=== PATIENT | female | born 1975 | race Caucasian/White ===

== ENCOUNTER 2019-07-09 18:31 | Emergency (ER) | payer OTHER ==
[~2019-07-09] VITALS: Ht 60 cm; Wt 58.1 kg
--- NOTE | 2019-07-09 18:34 | NUR ---
Pt brought ambulatory to ED 5 from registration desk. Report of pt having similar episode as did 1 elem ago that lead pt to getting to for evaluation to r/o stroke. reports patient was told all the studies via reports no stroke detected and considered adverse reaction to a medication? Pt was fine at 1644 then began Left sided weakness and left mouth droop. said she seemed confused at that time. Pt brought to room, vitals began, SL started and lab drawn while CT scanner was warming up. Pt reports alittle headache on top of head with a pressure sensation down to her tops of ears. Dr Arce notified of pt's arrival. Pt is alert, knows month and age, and reports seeing finger movement of staff nurse while not noticing eyes tracking.
--- NOTE | 2019-07-09 18:50 | NUR ---
Pt leaving room via cart heading to CT. [facility] interrupted.
--- NOTE | 2019-07-09 18:55 | NUR ---
Report to Meme SINGER to resume care.
--- NOTE | 2019-07-09 18:57 | Diagnostic Imaging Report ---
PROCEDURE: CT head without contrast. TECHNIQUE: Multiple contiguous axial images were obtained through the brain without the use of intravenous contrast. Auto Exposure Controls were utilized during the CT exam to meet ALARA standards for radiation dose reduction. INDICATION: Stroke-like symptoms. COMPARISON: No comparison available. FINDINGS: By CT imaging, there are no findings of territorial loss of vega-white differentiation, and there is no evidence of abnormal hypodensity within the basal ganglia or within the wayne. There are no findings of hemorrhage. There is no mass effect or shift. There is no hydrocephalus. There is no abnormal extra-axial fluid collection, and the basilar cisterns appear patent. Mastoids appear clear. The visualized paranasal sinuses are clear. There is some slight density demonstrated within the basilar artery and both of the middle cerebral arteries but no asymmetric focal hyperdensity evident. IMPRESSION: 1. No current CT findings of loss of vega-white differentiation or abnormal hypodensity within the basal ganglia. No acute ischemic changes evident by CT. If there is continued clinical concern, MRI could be considered. Dictated by: Dictated on workstation # [id number]
[2019-07-09] MEDS ORDERED: LORazepam INJ 2 MG/ML (ATIVAN) VIAL ONE (19:14)
[2019-07-09] MEDS ORDERED: DIAZEPAM INJ 10 MG/2 ML (VALIUM) SYR IVP ONE (19:15)
--- NOTE | 2019-07-09 19:20 | ED General ---
General Chief Complaint: Neuro-Stroke Like Symptoms Stated Complaint: CONFUSED, FACIAL NUMBNESS AND DROOPING Source of Information: Patient History of Present Illness Date Seen by Provider: Jul 09, 2019 Time Seen by Provider: 18:45 Initial Comments Patient is a 43-year-old who presents with acute onset left facial droop starting 2 hours prior to ED arrival. Symptoms were preceded by inability to find her words 1 hour prior to facial droop. 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 Denies posterior neck pain. No change in vision, difficulty swallowing. Patient was driving with her spouse when he first noticed the symptoms. Patient also reports headache which has since resolved. No chest pain palpitations. Symptoms have not improved since time of onset. Patient reportedly had near identical symptoms 1 week ago and drove to [facility] and was admitted to that facility for 2 nights. The patient is beyond the window of TPA by the time she arrived in [place] and therefore was not a candidate for TPA. The patient's spouse states she had 4 scans which were reported as normal. States she was not diagnosed with a stroke and thr cause of her symptoms remains unclear, but was thought might be an adverse reaction to newly started medication. Patient states she was sent home with a prescription for Zyrtec and vitamin B6. Stroke alert on ED alert. Timing/Duration: Constant (3 hours), Other (3 hours) Associated Systoms: Denies Symptoms Allergies and Home Medications Allergies Coded Allergies: No Known Drug Allergies (Unverified , 07/09/19) Patient Home Medication List Home Medication List Reviewed: Yes Review of Systems Review of Systems Constitutional: see HPI EENTM: see HPI Respiratory: see HPI Cardiovascular: see HPI Gastrointestinal: see HPI Genitourinary: see HPI Musculoskeletal: see HPI Skin: see HPI Psychiatric/Neurological: See HPI Hematologic/Lymphatic: See HPI Immunological/Allergic: see HPI Past Woyxvdt-Gmclnr-Nexaqs Hx Past Med/Social Hx: Reviewed Nursing Past Med/Soc Hx Patient Social History Recent Foreign Travel: No Contact w/Someone Who Travel: No Physical Exam Vital Signs Vital Signs - First Documented 07/09/19 18:34 Temp 36.2 Pulse 102 Resp 18 B/P (MAP) 110/93 Pulse Ox 99 O2 Delivery Room Air Capillary Refill : Height, Weight, BMI Height: '" Weight: lbs. oz. kg; BMI Method: General Appearance: No Apparent Distress, WD/WN Eyes: Bilateral Eye Normal Inspection, Bilateral Eye PERRL, Bilateral Eye EOMI, Bilateral Eye Abnormal EOM, Bilateral Eye Abnormal Pupil HEENT: PERRL/EOMI, Pharynx Normal, Moist Mucous Membranes, Other (left facial droop with inability to open last month) Neck: Full Range of Motion, Normal Inspection, Non Tender, Supple Respiratory: Chest Non Tender, Lungs Clear Cardiovascular: Regular Rate, Rhythm, No Edema Gastrointestinal: Normal Bowel Sounds Neurologic/Psychiatric: Alert, Oriented x3, Facial Droop, Motor Weakness (decreased left hand riding silks custodian strength, decreased left leg strength, unable to raise her maintain against gravity.), Other (NIH stroke score of 5 per nurse stroke assessment) Skin: Normal Color, Warm/Dry Progress/Results/Core Measures Suspected Sepsis SIRS Temperature: Pulse: Respiratory Rate: Laboratory Tests 07/09/19 18:41: White Blood Count 7.3 Blood Pressure / Mean: Laboratory Tests 07/09/19 18:41: Creatinine 0.81, INR Comment 0.9, Platelet Count 363, Total Bilirubin 0.2 Results/Orders Lab Results Laboratory Tests Test 07/09/19 18:41 Range/Units White Blood Count 7.3 4.3-11.0 10^3/uL Red Blood Count 4.19 L 4.35-5.85 10^6/uL Hemoglobin 12.8 11.5-16.0 G/DL Hematocrit 38 35-52 % Mean Corpuscular Volume 91 80-99 FL Mean Corpuscular Hemoglobin 31 25-34 PG Mean Corpuscular Hemoglobin Concent 34 32-36 G/DL Red Cell Distribution Width 12.4 10.0-14.5 % Platelet Count 363 130-400 10^3/uL Mean Platelet Volume 9.0 7.4-10.4 FL Neutrophils (%) (Auto) 42 42-75 % Lymphocytes (%) (Auto) 48 H 12-44 % Monocytes (%) (Auto) 6 0-12 % Eosinophils (%) (Auto) 3 0-10 % Basophils (%) (Auto) 1 0-10 % Neutrophils # (Auto) 3.0 1.8-7.8 X 10^3 Lymphocytes # (Auto) 3.5 1.0-4.0 X 10^3 Monocytes # (Auto) 0.4 0.0-1.0 X 10^3 Eosinophils # (Auto) 0.2 0.0-0.3 10^3/uL Basophils # (Auto) 0.1 0.0-0.1 10^3/uL Prothrombin Time 12.2 12.2-14.7 SEC INR Comment 0.9 0.8-1.4 Activated Partial Thromboplast Time 26 24-35 SEC Sodium Level 141 135-145 MMOL/L Potassium Level 3.7 3.6-5.0 MMOL/L Chloride Level 101 98-107 MMOL/L Carbon Dioxide Level 26 21-32 MMOL/L Anion Gap 14 5-14 MMOL/L Blood Urea Nitrogen 17 7-18 MG/DL Creatinine 0.81 0.60-1.30 MG/DL Estimat Glomerular Filtration Rate > 60 BUN/Creatinine Ratio 21 Glucose Level 104 70-105 MG/DL Calcium Level 9.3 8.5-10.1 MG/DL Corrected Calcium 8.5-10.1 MG/DL Total Bilirubin 0.2 0.1-1.0 MG/DL Aspartate Amino Transf (AST/SGOT) 35 H 5-34 U/L Alanine Aminotransferase (ALT/SGPT) 39 0-55 U/L Alkaline Phosphatase 94 40-136 U/L Total Protein 7.4 6.4-8.2 GM/DL Albumin 4.6 H 3.2-4.5 GM/DL Serum Test, Qualitative NEGATIVE NEGATIVE My Orders Orders - KERVIN PAIGE DO Ct Head Wo (07/09/19 18:40) Cbc With Automated Diff (07/09/19 18:54) Comprehensive Metabolic Panel (07/09/19 18:54) Protime With Inr (07/09/19 18:54) Partial Thromboplastin Time (07/09/19 18:54) Ekg Tracing (07/09/19 18:54) Hcg,Qualitative Serum (07/09/19 18:54) Lorazepam Injection (Ativan Injection) (07/09/19 19:30) Lorazepam Injection (Ativan Injection) (07/09/19 19:14) Medications Given in ED Current Medications Medications Dose Ordered Sig/Keiko Route Start Time Stop Time Status Last Admin Dose Admin Lorazepam 1 mg ONCE ONCE IVP 07/09/19 19:30 07/09/19 19:31 DC 07/09/19 19:24 1 MG Vital Signs/I&O 07/09/19 18:34 Temp 36.2 Pulse 102 Resp 18 B/P (MAP) 110/93 Pulse Ox 99 O2 Delivery Room Air Capillary Refill : Departure Communication (Admissions) Patient was strokelike symptoms without clear diagnosis of stroke with recent stroke-like event in the past week. Patient is not currently a candidate for TPA given recent stroke. Minimal improvement of facial droop while in the ED, left upper and left lower extremity weakness persists. Patient maintaining airway. CT head negative. Vital signs stable. Patient requests transfer to [facility] in [place]. I spoke with the on duty ED doctor declined patient stating they are on diver and shipping patient's out of their emergency department. Dr. Poe on-call for [facility] accepts the patient to [facility] emergency department. Dr. Logan lubrication technician for neurology agrees with disposition to hold TPA at this time. Patient transferred expeditiously to [facility]. Impression Primary Impression: CVA (cerebral vascular accident) Disposition: XFER T-[facility] Condition: Improved Departure-Patient Inst. Referrals: NO,LOCAL PHYSICIAN (PCP) Primary Care Physician KERVIN PAIGE DO Jul 09, 2019 19:20
[2019-07-09 19:26] LABS: HEMATOCRIT 38 % (35-52); HEMOGLOBIN 12.8 G/DL (11.5-16.0); MEAN CORPUSCULAR HEMOGLOBIN 31 PG (25-34); MEAN CORPUSCULAR HGB CONC 34 G/DL (32-36); MEAN CORPUSCULAR VOLUME 91 FL (80-99); WHITE BLOOD COUNT 7.3 10^3/uL (4.3-11.0)
[2019-07-09 19:27] LABS: BASOPHILS # (AUTO) 0.1 10^3/uL (0.0-0.1); BASOPHILS % (AUTO) 1 % (0-10); EOSINOPHILS # (AUTO) 0.2 10^3/uL (0.0-0.3); EOSINOPHILS % (AUTO) 3 % (0-10); LYMPHOCYTES # (AUTO) 3.5 X 10^3 (1.0-4.0); LYMPHOCYTES % (AUTO) 48 % (12-44); MONOCYTES # (AUTO) 0.4 X 10^3 (0.0-1.0); MONOCYTES % (AUTO) 6 % (0-12); NEUTROPHILS % (AUTO) 42 % (42-75); PLATELET COUNT 363 10^3/uL (130-400); RED CELL DISTRIBUTION WIDTH 12.4 % (10.0-14.5)
[2019-07-09] MEDS ORDERED: LORazepam INJ 2 MG/ML (ATIVAN) VIAL IVP ONE (19:30)
[2019-07-09 19:36] LABS: INR 0.9 (0.8-1.4); PROTHROMBIN TIME PATIENT 12.2 SEC (12.2-14.7)
[2019-07-09 19:37] LABS: ALANINE AMINOTRANSFERASE 39 U/L (0-55); ALBUMIN 4.6 GM/DL (3.2-4.5); ALKALINE PHOSPHATASE 94 U/L (40-136); BILIRUBIN,TOTAL 0.2 MG/DL (0.1-1.0); BUN/CREATININE RATIO 21; CALCIUM 9.3 MG/DL (8.5-10.1); CARBON DIOXIDE 26 MMOL/L (21-32); CHLORIDE 101 MMOL/L (98-107); CREATININE SERUM 0.81 MG/DL (0.60-1.30); GFR ESTIMATED > 60; GLUCOSE 104 MG/DL (70-105); POTASSIUM 3.7 MMOL/L (3.6-5.0); SODIUM 141 MMOL/L (135-145); TOTAL PROTEIN 7.4 GM/DL (6.4-8.2)
--- NOTE | 2019-07-09 19:45 | NUR ---
DOCTOR PAIGE IN TO SEE THE PATIENT.
[2019-07-09 20:48] VITALS: BP 137/92
== END 2019-07-09 21:09 | disposition short-term general hospital (02) ==
LOC: ER FS 18:33
DX: I63.9 Cerebral infarction, unspecified (principal)
CPT/HCPCS: 36415; 70450; 80053; 84703; 85025; 85610; 85730; 93005; 96374